=== PATIENT | female | born 1965 ===

== ENCOUNTER 2017-08-19 09:38 | Outpatient (CLI) | payer OTHER ==
--- NOTE | 2017-08-19 21:46 | XRay Report ---
FINAL REPORT EXAM: XR KNEE BILAT 4+V HISTORY: Bilateral KNEE PAIN TECHNIQUE: AP standing, tunnel, sunrise, and lateral standing views of the bilateral knees PRIORS: None. FINDINGS: No acute fracture or dislocation is seen. The soft tissues are unremarkable with no evidence for suprapatellar joint effusion. The bony mineralization is normal. Mild narrowing of both medial joint compartments is seen. IMPRESSION: No acute abnormality of the bilateral knees. Mild medial joint compartment narrowing bilaterally.
== END 2017-08-19 09:39 | disposition home or self-care (01) ==
LOC: SPVIMAG 09:38
PROVIDERS: ATTEND Orthopaedic Surgery
DX: M25.561 Pain in right knee (principal); M25.562 Pain in left knee

== ENCOUNTER 2017-08-24 11:50 | Outpatient (CLI) | payer OTHER ==
--- NOTE | 2017-08-24 15:49 | XRay Report ---
BILATERAL HAND THREE VIEWS EACH: 08/24/17 CLINICAL: Bilateral hand pain. FINDINGS: Right:No fracture or dislocation.Mild osteoarthritis at the basal joint of the thumb and the first MCP joint. The rest of the joints are normal. Mild soft tissue swelling of the index, middle and ring fingers. The carpal bones are intact. The distal radius and ulna are normal. Left: No fracture or dislocation.Mild osteoarthritis at the basal joint of the thumb. The rest of the joints are normal. Mild soft tissue swelling of the index finger the middle finger. No soft tissue air or for body. IMPRESSION: Mild bilateral osteoarthritis of the thumb. Nonspecific soft tissue swelling.
== END 2017-08-24 11:51 | disposition home or self-care (01) ==
LOC: SPVIMAG 11:50
PROVIDERS: ATTEND Orthopaedic Surgery
DX: M18.9 Osteoarthritis of first carpometacarpal joint, unspecified (principal)